=== PATIENT | male | born 1985 | race Caucasian/White ===

== ENCOUNTER 2017-11-06 09:34 | Emergency (ER) | payer MEDICAID ==
[2017-11-06 09:50] VITALS: RESP 16
--- NOTE | 2017-11-06 09:57 | EDPHY ---
H & P Stated Complaint: yesterday developed body aches/nausea and dizzyness Time Seen by Provider: 11/06/17 09:56 HPI/ROS: HPI: This is a 32-year-old male who presents with Chief Complaint: yesterday developed body aches/nausea and dizziness Location: Body Quality: Aches Duration: Starting this morning when he woke up approximately 1-2 hours ago Signs and Symptoms: no fever, + nausea, no vomiting, no hematemesis, no blood in stool, no abdominal bloating, no diarrhea, no back pain, no urinary symptoms , no testicular/groin pain, no indigestion, no chest pain, no shortness of breath, no sore throat, no cough, no ear pain, no neck stiffness Timing: Sudden, constant Severity: Moderate Context: Patient is generally healthy, works at [employer], reports that he felt his usual self yesterday and went to work. Last night he was unable to get comfortable and felt achy in his muscles. He woke up this morning with continued body aches, nausea and dizziness. He denies fever/chills/cough/sore throat/neck stiffness. He he denies any abdominal pain, diarrhea or vomiting. He has not tried any [id number] medication. Denies weakness/radiation/ numbness. Modifying Factors: None Comment: ROS: see HPI Constitutional: No fever, no chills, no weight loss Eyes: No blurred vision Respiratory: No shortness of breath, no cough Cardiovascular: No chest pain, no palpitations Gastrointestinal: + nausea, no vomiting, no diarrhea, no hematemesis, no blood in stool Genitourinary: No dysuria, no blood in urine Extremities: No myalgias, no edema Neurologic: No weakness, no numbness Skin: No rashes, no petechiae Hematologic: No bruising, no bleeding MEDICAL/SURGICAL/SOCIAL HISTORY: Medical history: Anxiety. Does not take any regular medications. Surgical history: Tympanostomy tubes Social history: Employed. CONSTITUTIONAL: Well-developed well-nourished adult white male who is nontoxic in appearance, awake and alert, no obvious distress HEENT: Atraumatic and normocephalic, PERRL, EOMI. Tympanic membranes clear. Oropharynx clear, no exudate and moist pink mucosa. Airway patent. No lymphadenopathy. No meningismus. Cardiovascular: Normal S1/S2, regular rate, regular rhythm, without murmur rub or gallop. PULMONARY/CHEST: Symmetrical and nontender. Clear to auscultation bilaterally. Good air movement. No accessory muscle usage. ABDOMEN: Soft, nondistended, nontender, no rebound, no guarding, no peritoneal signs, no masses or organomegaly. No CVAT. EXTREMITIES: 2/2 pulses, strength 5/5, no deformities, no clubbing, no cyanosis or edema. NEUROLOGICAL: no focal neuro deficits. GCS 15. SKIN: Warm and dry, no erythema. Multiple tattoos covering entire body. no rash. Good capillary refill. Source: Patient Exam Limitations: No limitations - Personal History Current Tetanus/Diphtheria Vaccine: Yes - Medical/Surgical History Hx Asthma: No Hx Chronic Respiratory Disease: No Hx Diabetes: No Hx Cardiac Disease: No Hx Renal Disease: No Hx Cirrhosis: No Hx Alcoholism: No Hx HIV/AIDS: No Hx Splenectomy or Spleen Trauma: No Other PMH: tubes in ears as child/anxiety - Social History Smoking Status: Never smoked Constitutional: Initial Vital Signs Temperature (C) 36.9 C 11/06/17 09:47 Heart Rate 88 11/06/17 09:47 Respiratory Rate 16 11/06/17 09:47 Blood Pressure 127/84 H 11/06/17 09:47 O2 Sat (%) 94 11/06/17 09:47 O2 Delivery Mode Room Air Allergies/Adverse Reactions: No Known Allergies Allergy (Unverified 11/06/17 09:47) Home Medications: Medication Instructions Recorded Celexa 11/06/17 Gabapentin 11/06/17 Naproxen Sodium [Naproxen Sodium 500 mg PO DAILY #5 tablet.sa 11/06/17 ER] Promethazine HCl 25 mg PO Q6 PRN #12 tablet 11/06/17 Medical Decision Making ED Course/Re-evaluation: Influenza test, IV fluids, IV medications ordered Vital signs reviewed upon arrival and within normal limits. No signs of meningitis/pharyngitis/otitis media/dehydration/CVA Influenza a and B are negative Reassessed patient reports adequate relief of discomfort and nausea. Abdomen soft and nontender. I highly doubt surgical abdomen. Passed p.o. trial. Advised supportive care This patient was seen under the supervision of my secondary supervising physician. I evaluated care for this patient independently. Differential Diagnosis: Differential including but not limited to viral syndromes including influenza, viral syndrome, pneumonia and sepsis. - Data Points Laboratory Results: 11/06/17 09:58 Nasal Influenza A PCR NEGATIVE FOR FLU A (NEGATIVE) Nasal Influenza B PCR NEGATIVE FOR FLU B (NEGATIVE) Medications Given: Discontinued Medications Sodium Chloride (Ns) 1,000 mls @ 0 mls/hr IV EDNOW ONE; Wide Open PRN Reason: Protocol Stop: 11/06/17 10:15 Last Admin: 11/06/17 10:20 Dose: 1,000 mls Ketorolac Tromethamine (Toradol) 30 mg IVP EDNOW ONE Stop: 11/06/17 10:15 Last Admin: 11/06/17 10:20 Dose: 30 mg Ondansetron HCl (Zofran) 4 mg IVP EDNOW ONE Stop: 11/06/17 10:04 Last Admin: 11/06/17 10:07 Dose: 4 mg Departure - Departure Disposition: Home, Routine, Self-Care Clinical Impression: Viral syndrome Condition: Good Instructions: Viral Syndrome (ED) Additional Instructions: Influenza A and B are negative and it appears you have a viral syndrome. Consume a minimum of 8-10 glasses of water or electrolyte fluid replacement drinks that include Gatorade, Powerade, Pedialyte. Eat a bland diet for the next 48 hours and then slowly advance as tolerated. Take naproxen daily as needed for pain for maximum of 5 days. Please take medication with food. Take promethazine every 6 hr as needed for nausea/vomiting. Referrals: [facility],. [Clinic] - As per Instructions Stand Alone Forms: Work Excuse Prescriptions: Naproxen Sodium [Naproxen Sodium ER] 500 mg PO DAILY #5 tablet.sa Promethazine HCl 25 mg PO Q6 PRN #12 tablet PRN Reason: Nausea/Vomiting, Use 1st
[2017-11-06] MEDS ORDERED: ONDANSETRON 4 MG/2 ML VIAL ONE (10:02)
[2017-11-06] MEDS ORDERED: ONDANSETRON 4 MG/2 ML VIAL IVP ONE (10:03)
[2017-11-06] MEDS ORDERED: NS 1,000 ML IV ONE (10:14)
[2017-11-06] MEDS ORDERED: KETOROLAC 30 MG/1 ML SDV IVP ONE (10:14)
[2017-11-06 11:52] VITALS: BP 113/75; PULSE 85; TEMP 98.8; O2SAT 92
== END 2017-11-06 11:51 | disposition home or self-care (01) ==
DX: B34.9 Viral infection, unspecified (principal); E86.9 Volume depletion, unspecified
CPT/HCPCS: 96374; J1885; J2405

== ENCOUNTER 2018-01-06 07:55 | Emergency (ER) | payer MEDICAID ==
--- NOTE | 2018-01-06 08:06 | EDPHY ---
H & P Stated Complaint: allergy symptoms-wheezing, runny nose/eyes, trouble sleeping Time Seen by Provider: 01/06/18 08:06 - Personal History Current Tetanus/Diphtheria Vaccine: No Current Tetanus Diphtheria and Acellular Pertussis (TDAP): No - Medical/Surgical History Hx Asthma: No Hx Chronic Respiratory Disease: No Hx Diabetes: No Hx Cardiac Disease: No Hx Renal Disease: No Hx Cirrhosis: No Hx Alcoholism: No Hx HIV/AIDS: No Hx Splenectomy or Spleen Trauma: No Other PMH: tubes in ears as child/anxiety - Social History Smoking Status: Never smoked Constitutional: Initial Vital Signs Temperature (C) 36.8 C 01/06/18 07:58 Heart Rate 78 01/06/18 07:58 Respiratory Rate 20 01/06/18 07:58 Blood Pressure 139/104 H 01/06/18 07:58 O2 Sat (%) 96 01/06/18 07:58 O2 Delivery Mode Room Air Allergies/Adverse Reactions: No Known Allergies Allergy (Verified 01/06/18 07:57) Home Medications: Medication Instructions Recorded Celexa 11/06/17 Gabapentin 11/06/17 Naproxen Sodium [Naproxen Sodium 500 mg PO DAILY #5 tablet.sa 11/06/17 ER] Albuterol [Proventil Inhaler] 1 - 2 puffs IH Q4 #1 mdi 01/06/18 predniSONE 40 mg PO DAILY #10 tab 01/06/18 Medical Decision Making ED Course/Re-evaluation: CHIEF COMPLAINT: "I think it's hay fever, bro." HISTORY OF PRESENT ILLNESS: The patient is a 32 y/o male complaining of rhinorrhea, watery eyes, and mild wheezing for several days that he attributes to allergies. He moved here from [place] 7 months ago and had seasonal allergies prior to moving here, but reports his symptoms have never been this bad before. He has never had wheezing previously. He has been using Benadryl and Christen with only short-term improvement. He's having difficulty sleeping due to symptoms. No fever, chest pain, abdominal pain, vomiting, diarrhea. He is normally healthy. REVIEW OF SYSTEMS: A 10 point review of systems was performed and is negative with the exception of the elements mentioned in the history of present illness. PHYSICAL EXAM: HR, BP, O2 Sat, RR. Temp noted General Appearance: Alert, well hydrated, appropriate, and non-toxic appearing. Head: Atraumatic without scalp tenderness or obvious injury Eyes: Pupils equal, round, reactive to light and accommodation, EOMI, no trauma , no injection. Nose: Atraumatic, no rhinorrhea, clear. Throat: There is no erythema or exudates, no lesions, normal tonsils, mucus membranes moist. Neck: Supple Respiratory: No retractions, no distress, and no accessory muscle use. Lungs have coarse scattered rhonchi and occasional wheezing to auscultation bilaterally. Cardiovascular: Regular rate and rhythm, no murmurs, rubs, or gallops. Good capillary refill all extremities. Gastrointestinal: Abdomen is soft, nontender, non-distended, no masses, no rebound, no guarding, no peritoneal signs. Musculoskeletal: Normal active ROM of all extremities, atraumatic. Neurological: Alert, appropriate, and interactive. The patient has non-focal cranial nerves, motor, sensory, and cerebellar exam. Skin: No rashes, good turgor, no nodules on palpation. Past medical history: Seasonal allergies Past surgical history: Noncontributory Family history: Noncontributory Social history: Moved here from [place] 7 months ago. DIFFERENTIAL DIAGNOSIS: The differential diagnosis for the patient's symptoms included but was not limited to bronchitis, seasonal allergies, pneumonia, urinary tract infection, viral syndrome, meningitis, and sepsis. MEDICAL DECISION MAKING: This is a healthy 32 y/o male with seasonal allergies who presents with several days of rhinorrhea, wheezing, and watery eyes. He denies fever or feeling ill. He has scattered coarse rhonchi and occasional wheezing on auscultation. Presentation could represent bronchitis, viral syndrome, and/or seasonal allergies. Plan duo neb and 60mg PO prednisone here and discharge with albuterol and prednisone prescriptions and standard care and follow up instructions. He is comfortable with this plan. Departure - Departure Disposition: Home, Routine, Self-Care Clinical Impression: Bronchitis Seasonal allergies Qualifiers: Allergic rhinitis trigger: other Qualified Code(s): J30.89 - Other allergic rhinitis Condition: Good Instructions: Acute Bronchitis (ED), Allergies (ED) Additional Instructions: 1. Take prednisone as prescribed. Be sure to complete the entire prescription. 2. Continue using Benadryl as directed on the packaging as needed for symptoms. 3. Christen (fexofenadine) is another good choice for allergies that does not tend to cause drowsiness and can be used at the same time as Benadryl. 4. Use albuterol inhaler as directed for cough and wheezing. 5. Use Flonase nasal spray (or generic) as directed daily for nasal symptoms. Available [id number]. 6. Mucinex, available [id number], can be helpful for cough and mucus production. Use as directed on the packaging. 7. Follow up with a primary care provider to establish care locally. 8. Follow up with an agricultural extension specialist for long-term allergy treatment plan. Referrals: [facility],. [Clinic] - As per Instructions Michel Upton MD [Medical Doctor] - As per Instructions Prescriptions: Albuterol [Proventil Inhaler] 1 - 2 puffs IH Q4 #1 mdi predniSONE 40 mg PO DAILY #10 tab Report Scribed for: Jorge Saenz Report Scribed by: Ember Ferrer Date of Report: 01/06/18 Time of Report: 08:22
[2018-01-06] MEDS ORDERED: IPRATROPIUM/ALBUTEROL 3 ML DEYVIAL IH ONE (08:12)
[2018-01-06] MEDS ORDERED: predniSONE 20 MG TAB PO ONE (08:12)
[2018-01-06 08:37] VITALS: BP 132/95; PULSE 72; RESP 15; TEMP 98.1; O2SAT 99
== END 2018-01-06 08:39 | disposition home or self-care (01) ==
DX: J40 Bronchitis, not specified as acute or chronic (principal); J30.89 Other allergic rhinitis
CPT/HCPCS: J7512